=== PATIENT | male | born 2000 | race Caucasian/White ===

== ENCOUNTER 2022-11-26 21:16 | Emergency (ER) | payer OTHER ==
[~2022-11-26] VITALS: Ht 175.3 cm; Wt 97.5 kg
[~2022-11-26 21:16] MED LIST: ABAC300; AMOX50SU PO; CODACEE120 PO; IBUP400 PO; TYLENOL AND MOTRIN
[2022-11-26 21:23] VITALS: BP 150/81
== END 2022-11-26 23:44 | disposition home or self-care (01) ==
LOC: ER 21:16
DX: R55 Syncope and collapse (principal)
CPT/HCPCS: 71046; 82947; 93005; 93010; 99284-25